=== PATIENT | male | born 1980 | race American Indian/Alaskan Native ===

== ENCOUNTER 2019-01-17 14:06 | Emergency (ER) | payer OTHER ==
--- NOTE | 2019-01-17 14:31 | Emergency Department Report ---
Chief Complaint: Extremity Injury, Lower Stated Complaint: BACK PAIN Time Seen by Provider: 01/17/19 14:28 - HPI History of Present Illness: pt presents to the ED with c/o lower back pain x two days states he was throwing something into the container states he has a sharp pain, pt states he "cannot stand up straight" pt has been ambulatory no fall, injury, trauma tingling sensation to the right side of the back no numbness no weakness states he took bc powder/ ibuprofen yesterday states he has a hx of rhabdo no medications on a daily basis MSE screening note: Focused history and physical exam performed. Due to findings the following was ordered: UA, XR lumbar spine ED Disposition for MSE Condition: Stable
--- NOTE | 2019-01-17 15:17 | XRay Report ---
LUMBOSACRAL SPINE, 3 VIEWS: History: Back pain Findings: There is straightening of the normal lumbar lordosis. Minimal levocurvature is noted on the AP image. Mild to moderate degenerative disc narrowing is noted at L4-5. Minimal diffuse facet arthropathy. No evidence for compression deformity, subluxation or bone lesion. Impression: Straightening of the normal lordosis which could be secondary to muscular spasm. Mild to moderate degenerative disc disease at L4-5. No acute injury is identified.
[2019-01-17 15:57] LABS: Bilirubin,Urine NEG (Negative); Blood,Urine NEG (Negative); Color,Urine Straw (Yellow); Protein,Urine <15 mg/dL mg/dL (Negative); Urobilinogen,Urine < 2.0 mg/dL (<2.0); WBC,Urine < 1.0 /HPF (0.0-6.0)
[2019-01-17] MEDS ORDERED: TORADOL IM ONE (16:41)
[2019-01-17] MEDS ORDERED: DECADRON IM ONE (16:41)
--- NOTE | 2019-01-17 17:17 | Emergency Department Report ---
HPI - General Chief Complaint: Extremity Injury, Lower Time Seen by Provider: 01/17/19 14:28 - HPI HPI: pt c/o sharp lower back pain after lifting at work x2 days. denies any numbness or tingling in extermeties. ED Past Medical Hx - Past Medical History Previous Medical History?: No - Surgical History Past Surgical History?: No - Social History Smoking Status: Current Every Day Smoker Substance Use Type: Marijuana - Medications Home Medications: Home Medications Medication Instructions Recorded Confirmed Last Taken Type Cyclobenzaprine [Flexeril] 10 mg PO TID PRN #20 tablet 01/17/19 Unknown Rx Ibuprofen [Motrin] 800 mg PO Q8HR PRN #30 tablet 01/17/19 Unknown Rx methylPREDNISolone [Medrol] 4 mg PO DAILY #1 tab.ds.pk 01/17/19 Unknown Rx ED Review of Systems ROS: Stated complaint: BACK PAIN Other details as noted in HPI Comment: All other systems reviewed and negative Eyes: denies: eye pain ENT: denies: throat pain Respiratory: denies: orthopnea Cardiovascular: denies: dyspnea on exertion Musculoskeletal: back pain, myalgia Neurological: denies: headache, weakness Physical Exam - Physical Exam Vital Signs: Vital Signs 01/17/19 14:29 Temperature 98.2 F Pulse Rate 79 Respiratory 18 Rate Blood Pressure 102/62 O2 Sat by Pulse 100 Oximetry Physical Exam: Physical Exam: - General Limitations: No Limitations General appearance: alert, in no apparent distress, obese - Head Head exam: Present: atraumatic, normocephalic - Eye Eye exam: Present: normal appearance - ENT ENT exam: Present: mucous membranes moist - Neck Neck exam: Present: normal inspection - Respiratory Respiratory exam: Present: normal lung sounds bilaterally. Absent: respiratory distress - Cardiovascular Cardiovascular Exam: Present: normal rhythm. Absent: systolic murmur, diastolic murmur, rubs, gallop - GI/Abdominal GI/Abdominal exam: Present: soft, normal bowel sounds - Extremities Exam Extremities exam: Present: normal inspection - Back Exam Back exam: Present: normal inspection, paraspinal tenderness, muscle spasm. - Neurological Exam Neurological exam: Present: alert, oriented X3 - Psychiatric Psychiatric exam: normal affect and mood - Skin Skin exam: Present: warm, dry, intact, normal color. Absent: rash ED Course Vital Signs 01/17/19 14:29 Temperature 98.2 F Pulse Rate 79 Respiratory 18 Rate Blood Pressure 102/62 O2 Sat by Pulse 100 Oximetry Critical care attestation.: If time is entered above; I have spent that time in minutes in the direct care of this critically ill patient, excluding procedure time. ED Disposition Clinical Impression: Back pain Qualifiers: Back pain location: low back pain Chronicity: acute Back pain laterality: unspecified Sciatica presence: with sciatica Sciatica laterality: sciatica of right side Qualified Code(s): M54.41 - Lumbago with sciatica, right side Disposition: DC- TO HOME OR SELFCARE Is pt being admited?: No Does the pt Need Aspirin: No Condition: Stable Prescriptions: Cyclobenzaprine [Flexeril] 10 mg PO TID PRN #20 tablet PRN Reason: Muscle Spasm methylPREDNISolone [Medrol] 4 mg PO DAILY #1 tab.ds.pk Ibuprofen [Motrin] 800 mg PO Q8HR PRN #30 tablet PRN Reason: Pain , Severe (7-10) Referrals: JIM MALDONADO MD [Primary Care Provider] - 3-5 Days
[2019-01-18 19:10] VITALS: BP 102/62
== END 2019-01-17 18:15 | disposition home or self-care (01) ==
LOC: ED 14:06
DX: M54.41 Lumbago with sciatica, right side (principal); F17.200 Nicotine dependence, unspecified, uncomplicated; F12.10 Cannabis abuse, uncomplicated
CPT/HCPCS: 72100; 81001; 96372; 99283; J1100; J1885